=== PATIENT | female | born 1975 | race Caucasian/White ===

== ENCOUNTER 2022-02-13 11:57 | Emergency (ER) | payer BC ==
[~2022-02-13] VITALS: Ht 165.1 cm; Wt 99.8 kg
[2022-02-13 12:29] VITALS: BP_SYST 154
[2022-02-13] MEDS ORDERED: cefTRIAXone 1 GM IVPB PREMIX 50 ML IV ONE ×3 (15:30→18:30)
[2022-02-13] MEDS ORDERED: KETOROLAC TROMETHAMINE 30 MG VIAL IVP ONE (15:30)
[2022-02-13] MEDS ORDERED: NACL 0.9% 1,000 ML IV ONE (15:30)
[2022-02-13 15:54] LABS: BASOPHILS % (AUTO) 0.3 % (0.0-2.0); CALCIUM 9.1 mg/dL (8.4-11.0); CREATININE 0.7 mg/dL (0.55-1.30); EOSINOPHILS # (AUTO) 0.3 K/uL (0.0-0.4); EOSINOPHILS % (AUTO) 2.6 % (0.0-4.0); HEMATOCRIT 41.2 % (36-48); HEMOGLOBIN 13.5 g/dL (12.0-16.0); LYMPHOCYTES # (AUTO) 2.6 K/uL (1.0-5.5); LYMPHOCYTES % (AUTO) 21.3 % (20.5-51.5); MEAN CORPUSCULAR HEMOGLOBIN 27 pg (27-31); MEAN CORPUSCULAR HGB CONC 33 % (32-36); MEAN CORPUSCULAR VOLUME 81 fL (79.0-98.0); MONOCYTES # (AUTO) 0.7 K/uL (0.0-1.0); MONOCYTES % (AUTO) 5.4 % (1.7-9.3); NEUTROPHILS # (AUTO) 8.7 K/uL (1.8-7.7); NEUTROPHILS % (AUTO) 70.4 % (40.0-70.0); PLATELET COUNT (AUTO) 290 K/uL (130-430); POTASSIUM 3.9 mmol/L (3.5-5.1); RED BLOOD CELL COUNT(AUTO) 5.06 MIL/uL (4.2-6.2); RED CELL DISTRIBUTION WIDTH 17.2 % (9.0-15.0); WHITE BLOOD COUNT (AUTO) 12.3 K/uL (4.8-10.8)
--- NOTE | 2022-02-13 16:00 | NUR ---
PT TRIAGED AND TAKEN TO DR. TOM BURT AT BEDSIDE. RECEIVED PT FROM [facility]. PT HAS C/O PELVIC PAIN AND STATES SHE HAS UTI. SHE IS WORRIED IT IS NOW A KIDNEY INFECTION. SIDERAILS UP X2.
[2022-02-13 16:11] LABS: ALBUMIN 3.3 g/dL (3.4-4.8); TOTAL BILIRUBIN 0.8 mg/dL (0.0-1.0)
[2022-02-13 17:42] LABS: BLOOD, URINE 2+ (NEGATIVE); COLOR,URINE ORANGE (YELLOW); LEUKOCYTE ESTERASE ,URINE TRACE (NEGATIVE); PROTEIN URINE 2+ (NEGATIVE)
[2022-02-13 17:51] LABS: BILIRUBIN,URINE NEGATIVE (NEGATIVE); CLARITY/URINE HAZY (CLEAR); GLUCOSE,URINE NEGATIVE (NEGATIVE); KETONES,URINE NEGATIVE (NEGATIVE); NITRITE, URINE NEGATIVE (NEGATIVE)
[2022-02-13 17:52] LABS: BACTERIA,URINE FEW /HPF (None Seen); RBC,URINE 20-50 /HPF (0-3)
[2022-02-13 17:53] LABS: MUCUS,URINE 2+ /LPF (None Seen)
[2022-02-13] MEDS ORDERED: CIPR500T5 PO (19:32)
[2022-02-13] MEDS ORDERED: NAPR-690 PO (19:32)
[2022-02-13 19:40] VITALS: BP_SYST 154
--- NOTE | 2022-02-13 19:40 | NUR ---
Patient given written and verbal discharge instructions and verbalizes understanding. ER Dr. Stacy discussed with patient the results and treatment provided. Patient in stable condition. ID arm band removed. IV catheter removed intact and dressing applied, no active bleeding. Rx of cipro and naproxen given. Patient educated on pain management and to follow up with PMD. Pain Scale 0. Opportunity for questions provided and answered. Medication side effect fact sheet provided.
--- NOTE | 2022-02-22 06:19 | NUR ---
ADDENDUM Nacl 0.9% 1000ml start time 17:11 end time 18:11 Ceftriaxone Sodium 1gm 50ml start time 17:11 end time 17:41
== END 2022-02-13 19:40 | disposition home or self-care (01) ==
LOC: SED 11:57
DX: N12 Tubulo-interstitial nephritis, not specified as acute or chronic (principal); K70.9 Alcoholic liver disease, unspecified; R10.9 Unspecified abdominal pain; R30.0 Dysuria; R11.0 Nausea; Z79.899 Other long term (current) drug therapy
CPT/HCPCS: 99284; 96365; 96375; 80053; 82550; 85025; 36415; 81000; G0482; J0696; J1885